=== PATIENT | female | born 1980 | race Caucasian/White ===

== ENCOUNTER 2022-07-14 15:01 | Outpatient (CLI) | payer BC, SELFPAY ==
--- NOTE | ~2022-07-14 | US_ITS ---
EXAMINATION: US pelvic complete DATE: 07/14/2022 15:34 INDICATION: Menorrhagia. Pelvic pain. Comparison:No prior studies for comparison. TECHNIQUE: Multiple transabdominal sonographic images of the pelvis performed. FINDINGS: The uterus measures 9.4 x 4.5 x 4.8 cm. The endometrial complex measures 1.2 cm. The right ovary measures 4.1 x 2 x 2.6 cm and the left ovary measures 5 x 2.9 x 2.9 cm. There is a 2. 9 cm left ovarian cyst. There are small follicles in each ovary. Normal doppler signal in both ovarie s. There is no free fluid in the pelvis. There are no abnormal masses seen on either side. IMPRESSION: 1. Left ovarian cyst measuring 2.9 cm. 2: Endometrial thickening measuring 12 mm. Reviewed, dictated and finalized at location B.
== END 2022-07-14 15:02 ==
PROVIDERS: PCP Nurse Practitioner Family; Visit Provider Nurse Practitioner Family
DX: Z01.419 Encounter for gynecological examination (general) (routine) without abnormal findings (principal); Z12.39 Encounter for other screening for malignant neoplasm of breast; N92.6 Irregular menstruation, unspecified; F32.81 Premenstrual dysphoric disorder; E55.9 Vitamin D deficiency, unspecified; N83.202 Unspecified ovarian cyst, left side
CPT/HCPCS: 76856

== ENCOUNTER → 2022-12-11 15:48 | Outpatient (CLI) | payer BC, SELFPAY ==
--- NOTE | ~2022-12-11 | MM_ITS ---
EXAMINATION: MM screening leanne BI w brandon HISTORY: Screening mammogram TECHNIQUE: Craniocaudal and mediolateral oblique 3-D tomosynthesis images were obtained and synthetic 2-D images were generated. Bilateral rotated lateral CC views. CAD analysis was submitted and interp reted. COMPARISON: No prior mammogram is available for comparison at this institution. BREAST PARENCHYMAL COMPOSITION: The breasts are extremely dense, which lowers the sensitivity of mamm ography. FINDINGS: There is no evidence of suspicious mass, calcification, or architectural distortion to sugg est malignancy in either breast. IMPRESSION: 1. No mammographic evidence of malignancy. 2. Recommend routine screening mammography in one year. BI-RADS Category 1: Negative Reviewed, dictated and finalized at location A.
== END ==
PROVIDERS: PCP Nurse Practitioner Family; Visit Provider Nurse Practitioner Family
DX: Z12.31 Encounter for screening mammogram for malignant neoplasm of breast (principal); N92.6 Irregular menstruation, unspecified; F32.81 Premenstrual dysphoric disorder; E55.9 Vitamin D deficiency, unspecified; Z01.419 Encounter for gynecological examination (general) (routine) without abnormal findings
CPT/HCPCS: 77063; 77067

== ENCOUNTER 2023-08-06 15:07 | Outpatient (CLI) | payer OTHER, SELFPAY ==
--- NOTE | ~2023-08-06 | US_ITS ---
US pelvic complete w TV Ordering provider: Gabrielle Gunn History: . heavy uterine bleeding, uterine leiomyoma . Comparison: None. Technique: Transabdominal and endovaginal ultrasound of the pelvis (Doppler ultrasound interrogation techniques used as needed for this exam.) FINDINGS: CERVIX: Normal. UTERUS: Measures 9.7x 5.1x 5.9 cm in length which is within normal limits and is anteverted. No myom etrial masses. Small fibroid is seen anteriorly measuring 2 x 1.2x 1.3 and one is seen posteriorly me asuring 2.4 x 1.9 x 2.2 cm ENDOMETRIUM: Normal in thickness measuring 8 mm. (Note: the premenopausal endometrium may measure up to 16 mm when in the secretory phase.) No endometrial masses, cysts or fluid. CUL DE SAC: No free fluid. RIGHT OVARY: Normal in size measuring 4.7x 3x 4.9 CNM. Normal echotexture. Doppler vascular flow pres ent. Complex cyst with septations is seen measuring 2.2 x 1.9 x 1.9 cm. LEFT OVARY: Normal in size measuring 3.2x 2.3x 3 cm. Normal echotexture. Doppler vascular flow presen t. ADNEXA: Normal. No mass. IMPRESSION: Multiple fibroids. Complex cyst of the right ovary. Follow-up advised. Otherwise, normal pelvic ultra sound. Reviewed, dictated and finalized at location A. IMPRESSION: Multiple fibroids. Complex cyst of the right ovary. Follow-up advised. Otherwis e, normal pelvic ultrasound.
== END 2023-08-06 15:08 ==
DX: N92.0 Excessive and frequent menstruation with regular cycle (principal); D25.9 Leiomyoma of uterus, unspecified; N83.291 Other ovarian cyst, right side
CPT/HCPCS: 76830; 76856

== ENCOUNTER 2023-12-30 10:27 | Outpatient (CLI) | payer OTHER, SELFPAY ==
--- NOTE | ~2023-12-30 | MM_ITS ---
EXAMINATION: MM screening leanne BI w brandon HISTORY: Screening TECHNIQUE: Craniocaudal and mediolateral oblique 3-D tomosynthesis images were obtained and synthetic 2-D images were generated. CAD analysis was submitted and interpreted. COMPARISON: 12/11/2022 BREAST PARENCHYMAL COMPOSITION: Dense: The breasts are extremely dense, which lowers the sensitivity of mammography. FINDINGS: There is no evidence of suspicious mass, calcification, or architectural distortion to sugg est malignancy in either breast. There has been no suspicious interval change. IMPRESSION: 1. No mammographic evidence of malignancy. 2. Recommend routine screening mammography in one year. BI-RADS Category 1: Negative Reviewed, dictated and finalized at location B. ER TRAWL NET
== END 2023-12-30 10:28 | disposition home or self-care (01) ==
LOC: MICIMG 10:29
PROVIDERS: Visit Provider Pediatrics
DX: Z12.31 Encounter for screening mammogram for malignant neoplasm of breast (principal)
CPT/HCPCS: 77063; 77067

== ENCOUNTER 2024-01-06 08:47 | Outpatient (CLI) | payer OTHER, SELFPAY ==
--- NOTE | ~2024-01-06 | US_ITS ---
EXAM: PELVIC ULTRASOUND -transabdominal and transvaginal approach. HISTORY: Ovarian cyst 3 para 3 Last menstrual period is given as 12/26/2023. COMPARISON: 08/06/2023 and 07/14/2022. FINDINGS: UTERUS: 10.6 x 5.0 x 5.8 cm. The uterus is anteverted and anteflexed. The endometrial complex measures 12 mm. Within the body of the uterus is a focus of mixed echogenicity measuring 11 x 13 x 8 mm, likely an in tramural fibroid. No additional fibroids are identified. The uterus does demonstrate multiple echogenic striations, suggesting adenomyosis. This appearance is similar to previous studies RIGHT OVARY: The right ovary is unremarkable in echogenicity and size measuring 3.4 x 3.1 x 3.5 cm. Arterial and venous flow are identified. LEFT OVARY: The left ovary is unremarkable in echogenicity and size measuring 3.2 x 1.8 x 3.9 cm Both arterial and venous flow are identified. No free fluid is identified within the pelvis. IMPRESSION: Sonographic findings suggestive of adenomyosis. Single small intramural fibroid, as detailed above. Follicles detected bilaterally for which no further sonographic follow-up is needed Reviewed, dictated and finalized at location A. NING SPECIALIST IMPRESSION: Sonographic findings suggestive of adenomyosis. Single small intramural fibroid, as detailed above. Follicles detected bilaterally for which no further sonographic follow-up is ne eded
== END 2024-01-06 08:48 | disposition home or self-care (01) ==
LOC: MICIMG 08:48
PROVIDERS: Visit Provider Student in an Organized Health Care Education/Training Program
DX: D25.1 Intramural leiomyoma of uterus (principal)
CPT/HCPCS: 76830; 76856

== ENCOUNTER 2024-11-17 13:25 | Outpatient (CLI) | payer OTHER, SELFPAY ==
--- NOTE | 2024-11-17 | ECHO_ITS ---
Patient Info Name: Amparo Alfredo Age: 44 years : 1980 Gender: Female Ht: 61 in Wt: 135 lbs BSA: 1.64 m2 HR: 97 bpm BP: 153 / 100 mmHg Technical Quality: Good Exam Date: 11/17/2024 1:54 PM Patient Status: O Admit Date: 11/17/2024 Exam Type: CA echo doppler color flow Complete two-dimensional, color flow and Doppler transthoracic echocardiogram is performed. Hand Chain Maker: Sam Natarajan III Attending Provider: Ramya Mendoza Summary 1. Complete two-dimensional, color flow and Doppler transthoracic echocardiogram is performed. 2. Left ventricular chamber dimension is normal. 3. Left ventricular systolic function is normal, estimated at 65-70. 4. The left ventricular diastolic function is grade I diastolic dysfunction. 5. E/e' 4 is not elevated. Left Ventricle E/e' 4 is not elevated. Left ventricular chamber dimension is normal. Left ventricular systolic function is normal, estimated at 65-70. The left ventricular diastolic function is grade I diastolic dysfunction. Right Ventricle Right ventricular chamber dimension is normal. Right ventricular systolic function is normal and with normal TAPSE 2.5 cm. Left Atria Left atrial chamber dimension is normal. Right Atria Right atrial chamber dimension is normal. Aortic Valve The aortic valve is trileaflet. There is no aortic valve stenosis. There is no aortic valve regurgitation. Pulmonic Valve There is no pulmonic regurgitation. Mitral Valve There is no mitral valve stenosis. There is no mitral valve regurgitation. Tricuspid Valve There is no tricuspid valve regurgitation. Pericardium/Pleural There is no pericardial effusion. Inferior Vena Cava Normal inferior vena cava with >50% collapse upon inspiration consistent with normal right atrial pressure, 5 mmHg. Aorta The aortic root size at the sinus of Valsalva is normal. Left Ventricular Outflow Tract Name Value Normal LVOT 2D LVOT Diameter 2.0 cm LVOT Doppler LVOT Peak Velocity 92 cm/s LVOT Peak Gradient 3 mmHg LVOT Mean Gradient 2 mmHg LVOT VTI 18 cm LVOT VTI/AV VTI Ratio 0.8 LVOT Stroke Volume 55 ml LVOT CO 5.0 l/min LVOT CI 3.1 l/min/m2 Pulmonic Valve Name Value Normal PV Doppler PV Peak Velocity 129 cm/s PV Peak Gradient 7 mmHg PV Mean Gradient 4 mmHg Mitral Valve Name Value Normal MV Doppler MV Peak Gradient 3 mmHg MV Mean Gradient 2 mmHg MV Area (Cont Eq VTI) 3.2 cm2 MV Diastolic Function MV E Peak Velocity 67 cm/s MV A Peak Velocity 68 cm/s MV E/A 1.0 MV Decel Time (PW) 165 ms MV Annular TDI MV E/e' (Septal) 5.0 MV E/e' (Lateral) 4.0 MV E/e' (Average) 4.5 Tricuspid Valve Name Value Normal Estimated PAP/RSVP RA Pressure 5 mmHg <=5 TV Annular TDI TV Lateral Karen s' Velocity 15.9 cm/s >=9.5 Aortic Valve Name Value Normal AV Doppler AV Peak Velocity 127 cm/s AV Peak Gradient 6 mmHg AV Mean Gradient 3 mmHg AV VTI 23 cm AV Area (Cont Eq VTI) 2.4 cm2 >=3.0 AV Area (Cont Eq Yash) 2.2 cm2 AV DI (Yash) 0.73 AV Regurgitation 2D LVOT Area 3.0 cm2 Ventricles Name Value Normal LV Dimensions 2D/MM IVS Diastolic Thickness (2D) 0.8 cm 0.6-1.0 LVID Diastole (2D) 4.0 cm 3.8-5.2 LVIW Diastolic Thickness (2D) 0.8 cm 0.6-0.9 LVID Systole (2D) 2.7 cm 2.2-3.5 LVOT Diameter 2.0 cm LV Mass (2D Cubed) 89.00 g 67.00-162.00 LV Mass Index (2D Cubed) 54 g/m2 43-95 Relative Wall Thickness (2D) 0.39 <=0.42 LV Fractional Shortening/Ejection Fraction 2D/MM LV Fractional Shortening (2D) 33 % 27-45 LV EF (2D Teichholz) 62 % LV Diastolic Volume (4C MOD) 61 ml LV EF (4C MOD) 65 % LV Diastolic Volume (2C MOD) 68 ml LV EF (2C MOD) 73 % LV Diastolic Volume (BP MOD) 65 ml 46-106 LV Diastolic Volume Index (BP MOD) 40 ml/m2 29-61 LV Systolic Volume (BP MOD) 21 ml 14-42 LV Systolic Volume Index (BP MOD) 13 ml/m2 8-24 LV EF (BP MOD) 68 % 54-74 LV Diastolic Length (4C) 7.5 cm LV Systolic Length (4C) 5.4 cm LV Stroke Volume (4C MOD) 39 ml Atria Name Value Normal LA Dimensions LA Volume (4C A-L) 24 ml LA Volume (BP A-L) 26 ml RA Dimensions RA Systolic [place] Length (4C) 4.2 cm 2.2-2.8 RA Area (4C) 9.8 cm2 <=18.0 Report Signatures
--- OUTSIDE RECORDS SUMMARY | 2024-11-17 13:27 | XMS_ITS | Clinical Summary ---
Author Organization [facility] Address [address] [place] [address] Care Team Providers Care Field Adjuster Name Role Phone Cristian Heredia MD Primary Care Provider [phone] Source Comments [facility],non[facility] Affiliates and Associated Physician Practices is amultiple site organization consisting of ambulatory clinics and hospital sitesin [place], [place], [place] and [place]. This disclosure is being madepursuant to the Care Everywhere program and may not contain all information available regarding this patient. 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 Gender Identity Not on file Sexual Orientation Not on file Plan of Treatment Health Maintenance Due Date Last Done Comments LIPID TESTING 1980 MAMMOGRAM 1980 HIV SCREENING 1997 HEPATITIS C SCREENING 05/25/2000 DTAP/TDAP/TD VACCINES (1 - Tdap) 2001 HEPATITIS B VACCINE (1 of 3 - 19+ 3-dose series) 2001 HPV VACCINE (1 - 3-dose SCDM series) 2009 DEPRESSION SCREENING 02/23/2024 COVID-19 VACCINE ( - 2023-2 5 season) 2024 INFLUENZA VACCINE (#1) 2024 ZOSTER VACCINE (1 of 2) 2032 HIB VACCINE Aged Out No longer eligi ble based on patient's age to complete this topic MENINGOCOCCAL (Group B) VACC INE SHARED DECISION-MAKING Aged Out No longer eligibl e based on patient's age to complete this topic MENINGOCOCCAL GROUPS A/C/Y/W VACCINE Aged Out No longer eligible b ased on patient's age to complete this topic PNEUMOCOCCAL VACCINE Aged Out No long er eligible based on patient's age to complete this topic Care Teams Field Adjuster Relationship Specialty Start Date End Date Cristian Heredia MD [address] [place] [address] [place] [address] PCP - General Family Medicine 01/15/16
--- OUTSIDE RECORDS SUMMARY | 2024-11-17 13:27 | XMS_ITS | Clinical Summary ---
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 Gender Identity Not on file Sexual Orientation Not on file Plan of Treatment Health Maintenance Due Date Last Done Comments Hepatitis C Virus (HCV) Screening 1980 TdaP Immunization 1980 Hepatitis B Immunization (1 of 3 - 19+ 3-dose series) 2001 Pap Smear 05/31/2003 Human Papillomavirus (HPV) Immunization (1 - 3-dose SCDM series) 2009 Cervical Cancer Screening (CCS) 2012 HPV/Cotest 2012 SARS-COV-2 Immunization ( season) 2023 Influenza Immunization (#1) 2024 Respiratory Syncytial Virus (RSV) Immunization (Adult) (1 - 1-dose 75+ series) 2057 Meningococcal Immunization (ACWY) Aged Out No longer eligible based on patient's age to complete this topic Pneumococcal Immunization Combined Aged Out No longer eligible based on patient's age to complete this topic Rotavirus Immunization Aged Out No lo nger eligible based on patient's age to complete this topic
--- OUTSIDE RECORDS SUMMARY | 2024-11-17 13:28 | XMS_ITS | Patient Health Record ---
Author Organization [facility] dicine Address [address] [place] [address] Care Team Providers Care Sales Representative Door To Door Name Role Phone Zelda Robert Primary Care Provider [phone] Herb Teixeira Unavailable [phone] Ramya Mendoza Unavailable [phone] Migration, Provider Unavailable Unavailable Allergies Allergen (clinical drug ingredient) Drug/Non Drug Allergy documented on EMR Reaction Allergy Type Onset Date Status Poison alberta (uncoded) Unknown Allergy 2 Active cashew nut allergenic extract Cashew Nut (Diagnostic) Unknown Drug Allergy 04/22/2021 Active Reason For Referral Reason cervical w/ radicula r pain evaluate and treat Diagnosis 1 Arm numbness (R20.0) Diagnosis 2 Left lateral epicond ylitis (M77.12) Diagnosis 3 Neuropathy, cervical (radicular) (M54.12) Referral Organization [facility] Referring Provider First Name Zelda Referring Provider Last Name Jakob Referring Provider Speciality Nurse Gisel poole Referred Provider Specialty Physical The rapist Referral Priority Routine Reason tachycardia, chest p ain, palpitations Diagnosis 1 Tachycardia, paroxys mal (I47.9) Diagnosis 2 Heart palpitations ( R00.2) Diagnosis 3 Intermittent chest p ain (R07.9) Referral Organization [facility] Referring Provider First Name Ramya Referring Provider Last Name Kelly Referring Provider Speciality Nurse Prac zulema Referred Provider Specialty Cardiology General Notes Tosha Ramos 2024 08:44:11 AM CDT >echo ordered, Ce Katz 11/16/2024 09:35:23 AM CDT >Referral faxed to [facility] [phone] Jessica 11/16/2024 03:53:53 PM CDT >Pt scheduled for 11/20/24 Referral Priority Stat Medications Medication SIG (Take, Route, Frequency, Duration) Notes Start Date End Date Status clonazePAM 0.5 MG Tablet 1 Oral two time s a day; Duration: 0 04/22/2021 Not-Taking predniSONE 20 MG Tablet 3 tablets once a day for 2 days, 2 tablets once a day for 2 days, 1 tablet once a day for 2 days, 0.5 tablet once a day for 2 days Orally; Duration: 8 days 11/03/2024 Not-Taking Immunizations Vaccine Route Administration Date Status Comme nts COVID-19, subunit, rS-nanoparticle+Matrix-M1 Adjuvant, PF, 0.5 mL Unknown 11/07/2020 Administered COVID-19, subunit, rS-nanoparticle+Matrix-M1 Adjuvant, PF, 0.5 mL Unknown 12/10/2020 Administered Social History Tobacco Use: Social History Observation Description Date Details (start date - stop date) Never Smoker NA - NA Social History Tobacco Use: Social Info Question Answer Notes Tobacco Control (Standard) Tobacco use: Nonsmoker Additional Details Category Social Info Options Details Migrated Social History Migrated Social History Smoker: never Drug/Alcohol: Do you drink alcohol? Rarel y Problems Problem Type SNOMED Code ICD Code Onset Dates Problem Status W/U Status Risk Notes Problem Vitamin D deficiency (54058613) Vitamin D deficiency, unspecified (E55.9) 2 Active confirmed Problem Irregular menstruation (55165400) Irregular menstruation, unspecified (N92.6) 3 Active confirmed Problem Paresthesia (finding) (69655565) Paresthesia of skin (R20.2) 2 Active confirmed Problem Fatigue (20266176) Other fatigue (R53.83) 2 Active confirmed Problem Premenstrual dysphoric disorder (570557) Premenstrual dysphoric disorder (F32.81) 3 Active confirmed Problem Imaging result abnormal (836562618) Abnormal findings on diagnostic imaging of other specified body structures (R93.89) 3 Active confirmed Problem Paroxysmal tachycardia (98368079) Tachycardia, paroxysmal (I47.9) Active confirmed Problem Skin sensation disturbance (62228838) Arm numbness (R20.0) Active confirmed Problem Cervical radiculopathy (51080157) Neuropathy, cervical (radicular) (M54.12) Active confirmed Vital Signs Heart Rate 97 /min 11/14/2024 Temperature 98.9 degrees Fahrenheit 11/14/2024 Respiratory Rate 16 /min 11/03/2024 Blood pressure diastolic 88 mm Hg 11/14/2024 Oximetry 98 % 11/14/2024 Height-cm 154.94 cm 11/14/2024 Weight-kg 61.64 kg 11/14/2024 Height 61.00 in 11/14/2024 Blood pressure systolic 130 mm Hg 11/14/2024 Weight 135.9 lbs 11/14/2024 BMI 25.68 kg/m2 11/14/2024 Encounters Encounter Location Date Provider Diagnosis [address] [address] 02/05/2024 [facility] Acute cough R05.[address] [address] 04/27/2024 Zelda Robert Encounter for genera l adult medical examination without abnormal findings Z00.00 ; Irregular menstruation, unspecified N92.6 ; Premenstrual dysphoric disorder F32.81 and Arm numbness R20.[address] [address] 11/03/2024 Zelda Robert Left lateral epicondylitis M77.12 and Neuropathy, cervical (radicular) M54.[address] [address] 11/14/2024 Ramya Mendoza Intermittent chest pain R07.9 ; Heart palpitations R00.2 ; Tachycardia, paroxysmal I47.9 and Dizziness R42 [address] [address] 01/22/2024 Provider Migration [address] [address] 01/23/2024 Provider Migration [address] [address] 11/03/2024 Zelda Robert Encounter for genera l adult medical examination without abnormal findings Z00.00 [facility] [address] [place] [address] 11/10/2024 Zelda Robert [facility] [address] [place] [address] 11/14/2024 Ramya Mendoza Heart palpitations R00.2 ; Tachycardia R00.0 and Other chest pain R07.89 Assessments Encounter Date Diagnosis (ICD Code) Assessment Notes Treatment Notes Treatment Clinical Notes Section Notes 02/05/2024 Acute cough (ICD-10 - R05.1) 04/27/2024 Irregular menstruation, unspecified (ICD-10 - N92.6) -Have improved with having myomectomy and starting Tranxemic Acid. Will have some mild breakthrough bleeding and spotting, but improved. She has been experiencing low libido and hairloss. She has sought out a place to do hormone testing. She is waiting on labs to come back. a 04/27/2024 Encounter for general adult medical examination without abnormal findings (ICD-10 - Z00.00) -Overall doing good. Will check full panel of labs. UTD with pap and mammogram. a 11/03/2024 Left lateral epicondylitis (ICD-10 - M77.12) - Lateral left elbow pain consistent with tennis elbow (lateral epicondylitis) and tendonitis, likely aggravated by repetitive lifting and household activities.- Prescribed 8-day prednisone taper: three tablets daily for 2 days, then two tablets daily for 2 days, then one tablet daily for 2 days, then half a tablet daily for 2 days; take in the morning with food.- Recommended use of naproxen (Aleve) two tablets in the morning and two tablets at night as anti-inflammatory, as an alternative to ibuprofen.- Advised use of acetaminophen (Tylenol) for pain as needed, especially at night.- Recommended Voltaren gel and gentle massage to affected area.- Advised icing the elbow.- Instructed to avoid stretching and strengthening exercises until inflammation subsides. 11/03/2024 Neuropathy, cervical (radicular) (ICD-10 - M54.12) -Most likely has 2 different things going on with left elbow and arm. Tendonitis and cervical radiculopathy - Neck pain with possible nerve impingement contributing to radiating symptoms in left upper extremity.- Prescribed 8-day prednisone taper to address inflammation and potential nerve compression.- Next step would Nerve conduction study, MRI of C-spine and/or elbow, cortisone injection in elbow or PT. 11/03/2024 Encounter for general adult medical examination without abnormal findings (ICD-10 - Z00.00) 11/14/2024 Intermittent chest pain (ICD-10 - R07.9) - Labs are stable/normal (no elevated Trop, normal ddimer, normal BNP, CBC and CMP); TSH/T4 pending... - Will consider Stress Test for further evaluation of intermittent chest pain/palpitations - Will also cosider Holter Monitor (30 day) to evaluate for abnormal arrythmias causing symptoms. F/U with patient tommorrow. Can continue baby aspirin daily at this time. 11/14/2024 Heart palpitations (ICD-10 - R00.2) 11/14/2024 Tachycardia (ICD-10 - R00.0) 11/14/2024 Heart palpitations (ICD-10 - R00.2) 11/14/2024 Tachycardia, paroxysmal (ICD-10 - I47.9) 11/14/2024 Other chest pain (ICD-10 - R07.89) 04/27/2024 Premenstrual dysphoric disorder (ICD-10 - F32.81) -Uses Clonazepam as needed a 04/27/2024 Arm numbness (ICD-10 - R20.0) - Only happens when sleeping -Likely related to neck positioning during sleep,- Recommendation to use a supportive pillow and adjust sleeping position. Monitor for any changes during the day. If symptoms persist or worsen, further evaluation may be necessary. a 11/14/2024 Dizziness (ICD-10 - R42) 02/05/2024 Other Prescribing Augmentin today in fast track to target possible bacterial pnemonia so symptoms do not worsen. Instructed to take with a probiotic and eat yogurt to assist in any GI side effects that the medication may cause. Instructed to monitor oxygen levels at home to ensure nothing worsens at home. May try warm liquids to assist with the sore throat, and may continue taking Mucinex to break up congestion and assist with cough. Continue monitoring symptoms and if things worsen or do not begin to improve, may contact the office. 11/14/2024 Other Recurrent tachycardia, chest pain, shoulder pain, lightheadedness, and cough:- Episodes of tachycardia/palpit ations, chest pain, left sided shoulder pain, lightheadedness, and dry cough may be related to cardiac dysfunction, arrhythmia, or other underlying causes. Differential diagnosis includes arrhythmia, cardiac tissue injury/PA, pulmonary embolism, or thyroid dysfunction.- Ordered EKG in office to assess for abnormal rhythm; EKG showed NSR without ST changes present (reviewed with Dr. Douglass). - Recommended stat laboratory evaluation including troponin, thyroid markers, complete blood count, comprehensive metabolic panel, magnesium, d-dimer and BNP. (Patient getting these done at [facility] in [place] today). - Advised to seek emergency care if symptoms worsen, including chest pain, dyspnea, or scapular pain, vomiting, dizziness, etc. Patient v/u. - Significant cardiac history on boths sides of her family. Hx of pre-eclampsia with patient personally. Possible electrolyte disturbance:- Prednisone use may contribute to electrolyte disturbances.- Ordered comprehensive metabolic panel to assess sodium, potassium, and magnesium levels. Plan Of Treatment Pending Test Test Name Order Date Echocardiogram 11/14/2024 Electrocardiogram (EKG) 11/14/2024 Vitamin B12 11/03/2024 Magnesium, Serum 11/14/2024 CBC With Differential/Platelet T4 and TSH 11/14/2024 T4 and TSH 11/03/2024 Vitamin D, 1,25 Dihydroxy 11/03/2024 D-Dimer 11/14/2024 Troponin I 11/14/2024 B-Type Natriuretic Peptide 11/14/2024 Lipid Panel 11/03/2024 Comp. Metabolic Panel (14) 11/03/2024 Comp. Metabolic Panel (14) 11/14/2024 CBC 11/03/2024 Magnesium 11/03/2024 Next Appt Details Provider Name:Zelda Brinda fuentes, 04/30/2025 11:15:00 AM, [address] [place], [address], [phone] Insurance Providers Payer Name Payer Address Payer Phone Subscriber Number Group Number Insured Name Patient Relationship to Insured Coverage Start Date Coverage End Date [employer] [address] [address] [place] [address] [id number] [phone] Pato Alfredo Spouse - patient is the spouse of the insured 2024 Medical (General) History Medical History History ICD Code Vitamin D deficiency, unspecified E55.9 Irregular menstruation, unspecified N92. 6 Paresthesia of skin R20.2 Premenstrual dysphoric disorder F32.81 Abnormal findings on diagnostic imaging of other specified body structures R93.89 Surgical History Surgery Date(Month/Year) Tubal ligation 10/23/2019 Dilation and curettage 10/23/2019 Hysteroscopy ,notes : [facility] 12[facility]30[facility]2022 [facility]
--- OUTSIDE RECORDS SUMMARY | 2024-11-17 13:28 | XMS_ITS | Clinical Summary ---
Author Organization [facility] Address [address] [place] [id number] Care Team Providers Care Ingredient Scaler Helper Name Role Phone Ramya Mccarthy MD Primary Care Provider Ramya Mendoza APRN Unavailable [phone] Allergies Active Allergy Reactions Criticality Noted Date Comments Nuts Hives 06/24/2012 cashews Poison Rita Extract Unknown 06/24/2013 Medications Cholecalciferol (VITAMIN D3) 50 MCG (1999) Cap Take by mouth daily. Active Active Problems Problem Noted Date Diagnosed Date Abnormal uterine bleeding 12/25/2022 Ureteral calculus 06/08/2019 Renal calculus 06/08/2019 Renal colic 06/08/2019 Nausea 06/08/2019 Encounters Date Type Department Care Team Description 11/14/2024 12:07 PM CDT - 11/14/2024 11:59 PM CDT Hospital Encounter [facility] [address] [place] [address] Ramya Mendoza APRN Arrived Discharge Disposition: Home or Self Care (Routine Discharge) 11/14/2024 Orders Only [facility] [address] [place] [address] Ramya Mendoza APRN from Last 3 Months Family History Medical History Relation Comments Kidney Stones Brother Relation Status Comments Brother Social History Tobacco Use Types Packs/Day Years Used Date Smoking Tobacco: Never Smokeless Tobacco: Never Tobacco Cessation:Counseling Given: Not Answered Alcohol Use Standard Drinks/Week Comments Never 0 (1 standard drink = 0.6 oz pur e alcohol) AUDIT-C Answer Date Recorded Frequency of Alcohol Consumption Never 06/08/2019 Average Number of Drinks Not on file 020 Frequency of Binge Drinking Not on file 05/23 Comments No Sex and Gender Information Value Date Recorded Sex Assigned at Female 11/14/2024 12:04 PM CDT Legal Sex Female 4:35 PM CDT Gender Identity Not on file Sexual Orientation Not on file Last Filed Vital Signs Vital Sign Reading Time Taken Comments Blood Pressure 129/88 12/25/2022 2:00 PM CDT Pulse 89 12/25/2022 2:00 PM CDT Temperature 36.5 C (97.7 F) 12/25/2022 12:54 PM CDT Respiratory Rate 18 12/25/2022 2:00 PM CDT Oxygen Saturation 99% 12/25/2022 1:45 PM CDT Inhaled Oxygen Concentration - - Weight 61.2 kg (135 lb) 12/18/2022 4:04 PM CDT Height 154.9 cm (5' 1) 12/18/2022 4:04 PM CDT Body Mass Index 25.51 12/18/2022 4:04 PM CDT Plan of Treatment Upcoming Encounters Date Type Department Care Team (Late st Contact Info) Description 11/20/2024 9:15 AM CDT Office Visit [facility] [address] [place] [phone] Otf Mccann MD [facility]. [address] [phone] Health Maintenance Due Date Last Done Comments Cervical Cancer Screening Pap Smear (Age 30 to 64) Every 3 Years 1982 Annual Physical 1985 Hepatitis C 2000 DTaP, Tdap and Td Vaccines (1 - Tdap) 2001 Hepatitis B Vaccines (1 of 3 - 19+ 3-dose series) 2001 HPV Vaccines (1 - 3-dose SCDM series) 2009 Cervical Cancer Screening Pap with HPV Testing (Age 30 to 64) Every 5 Years 2012 Cervical Cancer Screening with HPV 2012 Mammogram Screening 2022 COVID-19 Vaccine ( season) 2024 12/10/2020, 12/10/2020, 11/07/2020, Additional history exists Meningococcal B Vaccine Aged Out No l onger eligible based on patient's age to complete this topic Meningococcal Vaccine Aged Out No tao cain eligible based on patient's age to complete this topic Pneumococcal Vaccine: Pediatrics (0 to 5 Years) and At-Risk Patients (6 to 49 Years) Aged Out No longer eligible based on patient's age to complete this topic RSV Immunizations Under 20 Months Aged Out No longer eligible based on patient's age to complete this topic Procedures Procedure Name Priority Date/Time Associated Diagnosis Comments D-DIMER, QUANTITATIVE STAT 11/14/2024 12:20 PM CDT Intermittent chest pain Heart palpitations Paroxysmal tachycardia, unspecified (CMS/HCC HHS/HCC) Dizziness MAGNESIUM STAT 11/14/2024 12:20 PM CDT Intermittent chest pain Heart palpitations Paroxysmal tachycardia, unspecified (CMS/HCC HHS/HCC) Dizziness COMPREHENSIVE METABOLIC PANEL STAT 11/14/2024 12:20 PM CDT Intermittent chest pain Heart palpitations Paroxysmal tachycardia, unspecified (CMS/HCC HHS/HCC) Dizziness THYROXINE, FREE (FT4) STAT 11/14/2024 12:20 PM CDT Intermittent chest pain Heart palpitations Paroxysmal tachycardia, unspecified (CMS/HCC HHS/HCC) Dizziness THYROID STIM HORMONE TSH STAT 11/14/2024 12:20 PM CDT Intermittent chest pain Heart palpitations Paroxysmal tachycardia, unspecified (CMS/HCC HHS/HCC) Dizziness PRO-BRAIN NATRIURETIC PEPTIDE STAT 11/14/2024 12:20 PM CDT Intermittent chest pain Heart palpitations Paroxysmal tachycardia, unspecified (CMS/HCC HHS/HCC) Dizziness CBC W/DIFF AUTOMATED STAT 11/14/2024 12:20 PM CDT Intermittent chest pain Heart palpitations Paroxysmal tachycardia, unspecified (CMS/HCC HHS/HCC) Dizziness TROPONIN, QUANT STAT 11/14/2024 12:20 PM CDT Intermittent chest pain Heart palpitations Paroxysmal tachycardia, unspecified (CMS/HCC HHS/HCC) Dizziness from Last 3 Months Results * PRO-BRAIN NATRIURETIC PEPTIDE (11/14/2024 12:20 PM CDT) Pathologist [facility] PRO-BRAIN NATRIURETIC PEPTIDE 26 0 - 125 PG/ML 11/14/2024 1:17 PM CDT [facility] Comment: CUT POINTS ESTABLISHED BY [employer] ON NT PROBNP (ICON) STUDY (2006). AGE INDEPENDENT: <300 PG/ML HAS A 99% NEGATIVE PREDICTIVE VALUE FOR EXCLUDING ACUTE CHF <50 YEARS: >450 PG/ML IS CONSISTENT WITH ACUTE CHF 50-75 YEARS: >900 PG/ML IS CONSISTENT WITH ACUTE CHF >75 YEARS: >1800 PG/ML IS CONSISTENT WITH ACUTE CHF IN PATIENTS WITH RENAL INSUFFICIENCY (GFR <60), >1200 PG/ML YIELDS A DIAGNOSTIC SENSITIVITY AND SPECIFICITY OF 89% AND 72% FOR ACUTE CHF. 11/14/2024 12:2 0 PM CDT us Ramya Mendoza APRN LABORATORY Final Resu lt [address] [place] [address], * COMPREHENSIVE METABOLIC PANEL (11/14/2024 12:20 PM CDT) [facility] GLUCOSE 96 70 - 99 MG/DL 11/14/2024 1:17 PM CDT [facility] BUN 11 7 - 18 MG/DL 11/14/2024 1:17 PM CDT [facility] CREATININE S/P/B 0.70 0.50 - 1.20 MG/DL 11/14/2024 1:17 PM CDT [facility] SODIUM S/P/B 139 136 - 145 MMOL/L 11/14/2024 1:17 PM CDT [facility] POTASSIUM S/P/B 4.2 3.5 - 5.1 MMOL/L 11/14/2024 1:17 PM CDT [facility] CHLORIDE S/P/B 103 100 - 108 MMOL/L 11/14/2024 1:17 PM CDT [facility] CO2 29.6 21.0 - 32.0 MMOL/L 11/14/2024 1:17 PM CDT [facility] CALCIUM S/P/B 8.8 8.5 - 10.1 MG/DL 11/14/2024 1:17 PM CDT [facility] BILIRUBIN TOTAL S/P/B 0.4 0.2 - 1.2 MG/DL 11/14/2024 1:17 PM CDT [facility] Comment: THIS ASSAY IS NOT RECOMMENDED FOR PATIENTS UNDERGOING TREATMENT WITH ELTROMBOPAG DUE TO THE POTENTIAL FOR FALSELY ELEVATED RESULTS. TOTAL PROTEIN S/P/B 7.2 6.4 - 8.2 G/DL 11/14/2024 1:17 PM CDT [facility] ALBUMIN S/P/B 4.1 3.4 - 5.0 G/DL 11/14/2024 1:17 PM CDT [facility] AST 18 15 - 37 U/L 11/14/2024 1:17 PM CDT [facility] ALT 26 14 - 55 U/L 11/14/2024 1:17 PM CDT [facility] ALKALINE PHOSPHATASE S/P/B 74 50 - 136 U/L 11/14/2024 1:17 PM CDT [facility] ANION GAP 6.4 5.0 - 15.0 MMOL/L 11/14/2024 1:17 PM CDT [facility] BUN CREATININE RATIO 15.7 6 - 26 11/14/2024 1:17 PM CDT [facility] A/G RATIO 1.3 1.0 - 2.5 RATIO 11/14/2024 1:17 PM CDT [facility] GFR ESTIMATE >90 >90 ML/MIN/1.7 3 M2 11/14/2024 1:17 PM CDT [facility] Comment: NOTE: eGFR is not calculated for patients <18 years of age. This is an estimated GFR calculation using the new CKD EPI creatinine equation without race and so does not require a correction factor for race. This estimated GFR should not be used for calculating drug doses. 11/14/2024 12:2 0 PM CDT Ramya Mendoza APRN LABORATORY Final Resu lt Performing Organization Address [facility] de Phone Number [facility] [address] [place] [address], * D-DIMER, QUANTITATIVE (11/14/2024 12:20 PM CDT) Pathologist [facility] D-DIMER 299 0 - 500 ng{FEU}/mL 11/14/2024 12:51 PM CDT [facility] Comment: D-Dimer values less than or equal to 500 ng/mL FEU have a negative predictive value of >95% for exclusion of deep vein thrombosis and pulmonary embolism. In patients over 50 (who tend to have higher normal baseline D-Dimer values), recent studies suggest age-adjusted D-Dimer cutoff values (calculated as: age [years] x 10 ng/mL) result in equivalent outcomes and no additional false negative findings. 11/14/2024 12:2 0 PM CDT Ramya Mendoza APRN LABORATORY Final Resu lt Performing Organization Address [facility] de Phone Number [facility] [address] [place] [address] [place] [address], [place] * (ABNORMAL) CBC W/DIFF AUTOMATED (11/14/2024 12:20 PM CDT) [facility] WBC 8.35 4.50 - 11.00 x10'3/uL 11/14/2024 12:43 PM CDT [facility] RBC 4.88 4.00 - 5.20 x10'6/uL 11/14/2024 12:43 PM CDT [facility] HGB 14.2 12.0 - 16.0 G/DL 11/14/2024 12:43 PM CDT [facility] HCT 43.1 38.0 - 48.0 % 11/14/2024 12:43 PM CDT [facility] MCV 88.3 80.0 - 100.0 FL 11/14/2024 12:43 PM CDT [facility] MCH 29.1 26.0 - 34.0 PG 11/14/2024 12:43 PM CDT [facility] MCHC 32.9 31.0 - 37.0 G/DL 11/14/2024 12:43 PM CDT [facility] RDW 11.9 11.6 - 14.8 % 11/14/2024 12:43 PM CDT [facility] PLT 339 130 - 400 x10'3/uL 11/14/2024 12:43 PM CDT [facility] MPV 9.2 7.0 - 12.0 FL 11/14/2024 12:43 PM CDT [facility] CBC COMMENT AUTOMATED RBC MORPHOLOGY AND PLATELET EVALUATION NORMAL 11/14/2024 12:43 PM CDT [facility] NEUTROPHILS % 77.2(H) 40.0 - 74.0 % 11/14/2024 12:43 PM CDT [facility] LYMPHOCYTES % 16.2 14.0 - 46.0 % 11/14/2024 12:43 PM CDT [facility] MONOCYTES % 4.2 4.0 - 13.0 % 11/14/2024 12:43 PM CDT [facility] EOSINOPHILS 1.3 0.0 - 7.0 % 11/14/2024 12:43 PM CDT [facility] BASOPHILS 0.4 0.0 - 3.0 % 11/14/2024 12:43 PM CDT [facility] IMMATURE GRANS % 0.7(H) 0.0 - 0.43 % 11/14/2024 12:43 PM CDT [facility] NRBC % 0.0 % 11/14/2024 12:43 PM CDT [facility] ABS. NEUTROPHILS TOTAL 6.45 1.69 - 7.81 x10'3/uL 11/14/2024 12:43 PM CDT [facility] ABS. LYMPHOCYTES 1.35 0.21 - 5.42 x10'3/uL 11/14/2024 12:43 PM CDT [facility] ABS. MONOCYTES 0.35 0.04 - 1.37 x10'3/uL 11/14/2024 12:43 PM CDT [facility] ABS. EOSINOPHILS 0.11 0.00 - 0.68 x10'3/uL 11/14/2024 12:43 PM CDT [facility] ABS. BASOPHILS 0.03 0.00 - 0.08 x10'3/uL 11/14/2024 12:43 PM CDT [facility] ABS. IMMATURE GRANULOCYTES 0.06 0.00 - 0.06 x10'3/uL 11/14/2024 12:43 PM CDT [facility] ABS. NUCLEATED RBC'S 0.00 0.00 - 0.01 x10'3/uL 11/14/2024 12:43 PM CDT [facility] 11/14/2024 12:2 0 PM CDT us Ramya Mendoza APRN LABORATORY Final Resu lt [address] [place] [address], * THYROXINE, FREE (FT4) (11/14/2024 12:20 PM CDT) FREE T4 0.87 0.76 - 1.46 NG/DL 11/14/2024 7:26 PM CDT [facility] 11/14/2024 12:2 0 PM CDT us Ramya Mendoza APRN LABORATORY Final Resu lt Performing Organization Address [facility]/ZIP Co de Phone Number [facility] [address] [place] [address], * TROPONIN, QUANT (11/14/2024 12:20 PM CDT) TROPONIN I HIGH SENSITIVITY <4 0 - 54 ng/L 11/14/2024 1:17 PM CDT [facility] Comment: HIGH DOSES OF BIOTIN, TROPONIN-SPECIFIC AUTOANTIBODIES, AND ANTIBODY THERAPY CONTAINING HAMA MAY INTERFERE WITH THIS TEST RESULT. CORRELATION TO CLINICAL HISTORY AND PRESENTATION RECOMMENDED. 11/14/2024 12:2 0 PM CDT Ramya Mendoza APRN LABORATORY Final Resu lt Performing Organization Address [facility] Co de Phone Number [facility] [address] [place] [address], * THYROID STIM HORMONE TSH (11/14/2024 12:20 PM CDT) TSH 1.600 0.358 - 3.74 uIU/ML 11/14/2024 7:26 PM CDT [facility] Comment: HIGH DOSES OF BIOTIN MAY INTERFERE WITH THIS TEST RESULT. CORRELATION TO CLINICAL HISTORY AND PRESENTATION RECOMMENDED. 11/14/2024 12:2 0 PM CDT Ramya Mendoza APRN LABORATORY Final Resu lt Performing Organization Address [facility]/ZIP Co de Phone Number [facility] [address] [place] [address], * MAGNESIUM (11/14/2024 12:20 PM CDT) MAGNESIUM 2.3 1.8 - 2.4 MG/DL 11/14/2024 1:17 PM CDT [facility] 11/14/2024 12:2 0 PM CDT us Ramya Mendoza APRN LABORATORY Final Resu lt [facility] [address] [place] [address], [place] from Last 3 Months Insurance [employer] Advance Directives Documents on File Type Date Recorded Patient Salad Bar Clerk Expl anation Advance Directives and Living Will 04/30/2014 12:00 AM AD[employer] DIRECTIVES Advance Directives and Living Will 07/19/2013 12:00 AM [employer] * Full Code (Latest Code Status on File) Date Activated Date Inactivated Comments 12/25/2022 1:00 PM 12/25/2022 5:45 PM Care Teams Ingredient Scaler Helper Relationship Specialty Start Date End Date Ramya Mccarthy MD [address] [place] [address] PCP - General FAMILY PRACTICE 06/08/19 Ramya Mendoza APRN [address] [place] [address] Nurse Practitioner NURSE PRACTITIONER 11/16/24
== END 2024-11-17 13:26 | disposition home or self-care (01) ==
LOC: ANHCARD 13:26
PROVIDERS: Visit Provider Nurse Practitioner Family
DX: I50.30 Unspecified diastolic (congestive) heart failure (principal); R07.89 Other chest pain
CPT/HCPCS: 93306